=== PATIENT | male | born 1990 | race Two or more races ===

== ENCOUNTER 2021-03-13 09:22 | Emergency (ER) | payer BC, OTHER ==
[~2021-03-13] VITALS: Ht 165.1 cm; Wt 70.3 kg
[2021-03-13 09:24] VITALS: BP 143/88
[2021-03-13] MEDS ORDERED: PRED1PAK9 PO (11:48)
[2021-03-13] MEDS ORDERED: PANT40TA2 PO (11:48)
== END 2021-03-13 16:41 | disposition home or self-care (01) ==
LOC: ER 09:22
DX: G51.0 Bell's palsy (principal)
CPT/HCPCS: 70450